=== PATIENT | male | born 1965 | race Caucasian/White ===

== ENCOUNTER 2018-03-19 16:32 | Emergency (ER) | payer BC ==
[2018-03-19] MEDS ORDERED: Diphtheria,Pertussis(Acell),Tetanus Vaccine 0.5 ML SDV IM ONE (16:47)
[2018-03-19] MEDS ORDERED: cefTRIAXone 1,000 MG VIAL IM ONE (16:47)
[2018-03-19] MEDS ORDERED: Lidocaine/EPINEPHrine/Tetracaine Soln 5 ML Each TOP ONE (16:53)
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
[2018-03-19] MEDS ORDERED: Cephalexin 500 MG Cap PO ONE (19:17)
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
== END 2018-03-19 19:47 | disposition home or self-care (01) ==
LOC: FB.ED 16:32
DX: S71.112A Laceration without foreign body, left thigh, initial encounter (principal); X58.XXXA Exposure to other specified factors, initial encounter; Z23 Encounter for immunization
CPT/HCPCS: 36415; 73560; 80048; 82550; 85025; 90471; 90715; 96372; 99284; A9270; G0480; J0696